=== PATIENT | male | born 1955 | race Caucasian/White ===

== ENCOUNTER 2024-05-04 17:38 | Emergency (ER) | payer OTHER, SELFPAY ==
[2024-05-04] VITALS (17 sets, daily range): BP systolic 126–158; BP diastolic 76–95; PULSE 52–67; TEMP 36.6; O2SAT 95–99; BMI 28.7
--- NOTE | 2024-05-04 17:59 | ECG_ITS ---
[facility] Test Date: 2024-05-04 Pat Name: ALCIRA MOYER Department: Room: - Gender: Male Psychiatric Rn: : 1955 Requested By: Order Number: [id number] Reading MD: TUCKER BOLANOS Measurements Intervals [place] Rate: 55 P: 70 SC: 148 QRS: -8 QRSD: 86 T: 59 QT: 388 QTc: 378 Interpretive Statements 1100 Sinus rhythm 9110 normal ECG No previous ECG available for comparison Electronically Signed On 05-05-2024 6:47:23 EST by TUCKER BOLANOS
--- NOTE | 2024-05-04 18:01 | ED.GENADUL1 ---
HPI HPI - General Adult General Chief complaint: Head Injury Stated complaint: BWC, FALL CHEST PAIN Time Seen by Provider: 05/04/24 17:50 Source: patient Mode of arrival: walk-in History of Present Illness HPI narrative: Patient is a 68-year-old male who presents to the emergency department for evaluation of a head injury with pain in the neck and upper chest/collarbones after a fall. 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 This occurred around 3 hours ago. They went to the [facility]'s emergency department but had to wait in the lobby for several hours so they left and came to this hospital. Patient does not believe that he had a loss of consciousness although the states that he is not sure. He reports pain to the sides of the neck radiating into the collarbones. He has no simona chest pain. He was dizzy after falling. He reports nausea. No peripheral paresthesias. He has no low back pain, hip pain or extremity pain. He does not take any medications for anticoagulation. He had no chest pain, dizziness or prodromal symptoms before falling. Related Data Previous Rx's ?Medication ?Instructions ?Recorded methocarbamol 750 mg tablet 750 mg PO TID PRN pain #20 tabs 05/04/24 ondansetron 4 mg disintegrating 4 mg PO Q6H PRN nausea and 05/04/24 tablet vomiting #12 tabs Allergies Allergy/AdvReac Type Severity Reaction Status Date / Time No Known Drug Allergies Allergy Verified 05/04/24 17:52 Opioid HPI Opioid Management Most Recent Opioid Data: No Data to Display Review of Systems ROS Constitutional Denies: fever or chills Ears, nose, mouth, and throat Reports: neck pain; Denies: throat pain Cardiovascular Reports: chest pain Respiratory Denies: shortness of breath Gastrointestinal Reports: nausea; Denies: abdominal pain or vomiting Musculoskeletal Reports: neck pain; Denies: back pain Integumentary/Breast Denies: rash Neurological Reports: headache; Denies: numbness in extremities or weakness in extremities Hematologic/Lymphatic Denies: easy bruising or easy bleeding Exam Narrative Exam Narrative: Gen.: Awake, alert, in no distress Head: Normocephalic, atraumatic ENT: Moist mucous membranes, no evidence of facial or dental injury. Diffuse mild tenderness of the cervical spine with no bony point tenderness of the posterior midline cervical spine. Respiratory: No respiratory distress, lungs clear bilaterally Cardio: Regular rate and rhythm Gastrointestinal: Abdomen is soft, nondistended and nontender to palpation, hips are nontender and pelvis is stable Extremities: Moves extremities equally, no injuries noted Psych: Normal mood and affect Neuro: No focal neuro deficit Skin: Warm, dry, intact Constitutional Vital Signs, click to edit/add: Last Vital Signs Temp 97.8 F 05/04/24 17:47 Pulse 57 L 05/04/24 19:30 Resp 19 05/04/24 19:30 BP 135/91 05/04/24 19:30 Pulse Ox 96 05/04/24 19:30 O2 Del Method Room Air 05/04/24 17:47 Course Vital Signs Vital signs: Vital Signs Temperature 97.8 F 05/04/24 17:47 Pulse Rate 60 05/04/24 17:47 Respiratory Rate 16 05/04/24 17:47 Blood Pressure 158/95 H 05/04/24 17:47 Pulse Oximetry 98 05/04/24 17:47 Oxygen Delivery Method Room Air 05/04/24 17:47 Temperature 97.8 F 05/04/24 17:47 Pulse Rate 57 L 05/04/24 19:30 Respiratory Rate 19 05/04/24 19:30 Blood Pressure 135/91 05/04/24 19:30 Pulse Oximetry 96 05/04/24 19:30 Oxygen Delivery Method Room Air 05/04/24 17:47 Medical Decision Making MDM Narrative Medical decision making narrative: EKG, labs and troponin obtained within normal limits. Patient was sent for CTs of the head, cervical spine and chest with contrast showing no evidence of acute process. Medicated with Norflex and Zofran. Resting comfortably on reevaluation and hemodynamically stable with a benign neuroexam and normal vital signs. Follow-up with occupational health and return to the ER if symptoms change or worsen. Closed head injury instructions given at bedside. SUPERVISED APC VISIT, PHYSICIAN ATTESTATION: Based on the medical record the care appears appropriate. ? Medical Records Medical records reviewed: Yes I reviewed the patient's medical records Lab Data Lab results reviewed: Yes I reviewed the patient's lab results Labs: Lab Results 05/04/24 Range/Units 18:00 WBC 9.6 (4.0-11.0) 10^3/uL RBC 4.80 (4.70-6.10) 10^6/uL Hgb 15.1 (14.0-18.0) g/dL Hct 43.3 (42.0-54.0) % MCV 90.2 (80.0-94.0) fL MCH 31.5 (25.9-34.0) pg MCHC 34.9 (29.9-35.2) g/dL RDW 12.3 (11.0-15.0) % Plt Count 212 (150-450) 10^3/uL MPV 9.3 L (9.5-13.5) fL Neut % (Auto) 69.1 (43.0-75.0) % Lymph % (Auto) 20.2 L (20.5-60.0) % [place] % (Auto) 7.8 (1.7-12.0) % Eos % (Auto) 1.9 (0.9-7.0) % Baso % (Auto) 0.5 (0.2-2.0) % Neut # (Auto) 6.6 H (1.4-6.5) 10^3/uL Lymph # (Auto) 1.9 (1.2-3.8) 10^3/uL [place] # (Auto) 0.8 (0.3-0.8) 10^3/uL Eos # (Auto) 0.2 (0.0-0.7) 10^3/uL Baso # (Auto) 0.1 (0.0-0.1) 10^3/uL Abs Immat Gran (auto) 0.05 H (0.00-0.03) 10^3/uL Imm/Tot Granulo (auto) 0.5 (0.0-0.5) % PT 11.0 (9.0-11.6) sec INR 1.04 Sodium 137 (136-145) mmol/L Potassium 4.1 (3.5-5.1) mmol/L Chloride 104 (98-107) mmol/L Carbon Dioxide 27.0 (21.0-32.0) mmol/L Anion Gap 10.1 BUN 19.0 H (7.0-18.0) mg/dL Creatinine 0.98 (0.70-1.30) mg/dL Est GFR ( Amer) >60 (>=60 mL/min/1.73m^2) Est GFR (Non-Af Amer) >60 (>=60 mL/min/1.73m^2) BUN/Creatinine Ratio 19.4 Glucose 89 (74-106) mg/dL Calcium 9.3 (8.5-10.1) mg/dL Total Bilirubin 0.9 (0.2-1.0) mg/dL AST 21 (15-37) U/L ALT 49 (16-63) U/L Alkaline Phosphatase 66 (46-116) U/L Troponin I High Sens 4.4 (4.0-76.1) pg/mL Total Protein 7.3 (6.4-8.2) g/dL Albumin 4.3 (3.4-5.0) g/dL Globulin 3.0 g/dL Albumin/Globulin Ratio 1.[address] scan - head: Radiologist's impression: CT of the brain, CT of the cervical spine, CT of the chest with contrast ECG Data Attestation: I personally reviewed and interpreted this ECG as follows: (Normal sinus rhythm at a rate of [address] elevation or ectopy. EKG reviewed by attending physician) Discharge Plan Discharge Chief Complaint: Head Injury Clinical Impression: Closed head injury, Cervical sprain Patient Disposition: Home, Self-Care Time of Disposition Decision: 20:06 Condition: Good Prescriptions / Home Meds: New methocarbamol 750 mg tablet 750 mg PO TID PRN (Reason: pain) Qty: 20 0RF ondansetron 4 mg tablet,disintegrating 4 mg PO Q6H PRN (Reason: nausea and vomiting) Qty: 12 0RF Print Language: Italian Instructions: Head Injury (ED) Referrals: [facility]Outside[facility] - 1 week Physician,Non-Staff, [Physician] - 1 week
[2024-05-04] MEDS: ONDANSETRON PF 4 MG/2 ML VIAL IV (18:26)
[2024-05-04] MEDS: ORPHENADRINE 60 MG/ 2 ML VIAL IV (18:26)
[2024-05-04 19:04] LABS: Basophils Absolute Auto 0.1 10^3/uL (0.0-0.1); Basophils Percent Auto 0.5 % (0.2-2.0); Eosinophils Absolute Auto 0.2 10^3/uL (0.0-0.7); Eosinophils Percent Auto 1.9 % (0.9-7.0); Hematocrit 43.3 % (42.0-54.0); Hemoglobin 15.1 g/dL (14.0-18.0); Immature Granulocytes Abs Auto 0.05 10^3/uL (0.00-0.03); Immature Granulocytes Pct Auto 0.5 % (0.0-0.5); Lymphocytes Absolute Auto 1.9 10^3/uL (1.2-3.8); Lymphocytes Percent Auto 20.2 % (20.5-60.0); Mean Corpuscular HGB Conc 34.9 g/dL (29.9-35.2); Mean Corpuscular Hemoglobin 31.5 pg (25.9-34.0); Mean Corpuscular Volume 90.2 fL (80.0-94.0); Mean Platelet Volume 9.3 fL (9.5-13.5); Monocytes Absolute Auto 0.8 10^3/uL (0.3-0.8); Monocytes Percent Auto 7.8 % (1.7-12.0); Neutrophils Absolute Auto 6.6 10^3/uL (1.4-6.5); Neutrophils Percent Auto 69.1 % (43.0-75.0); Platelet Count 212 10^3/uL (150-450); Red Cell Distribution Width 12.3 % (11.0-15.0); White Blood Count 9.6 10^3/uL (4.0-11.0)
[2024-05-04 19:31] LABS: INR 1.04
[2024-05-04 19:33] LABS: Troponin I High Sensitivity 4.4 pg/mL (4.0-76.1)
[2024-05-04 19:36] LABS: Alanine Aminotransferase 49 U/L (16-63); Albumin Globulin Ratio 1.4; Albumin Level 4.3 g/dL (3.4-5.0); Alkaline Phosphatase 66 U/L (46-116); Anion Gap 10.1; Aspartate Amino Transferase 21 U/L (15-37); BUN Creatinine Ratio 19.4; Bilirubin Total 0.9 mg/dL (0.2-1.0); Calcium 9.3 mg/dL (8.5-10.1); Chloride 104 mmol/L (98-107); Estimated GFR (African America >60 (>=60 mL/min/1.73m^2); Estimated GFR (Non-African Ame >60 (>=60 mL/min/1.73m^2); Glucose 89 mg/dL (74-106); Potassium 4.1 mmol/L (3.5-5.1); Sodium 137 mmol/L (136-145); Total Protein 7.3 g/dL (6.4-8.2)
== END 2024-05-04 20:34 | disposition home or self-care (01) ==
PROVIDERS: Physician Assistant; Emergency Provider Emergency Medicine; PCP Family Medicine
DX: S09.8XXA Other specified injuries of head, initial encounter (principal); S13.4XXA Sprain of ligaments of cervical spine, initial encounter; W01.0XXA Fall on same level from slipping, tripping and stumbling without subsequent striking against object, initial encounter
CPT/HCPCS: 36415; 70450; 71260; 72125; 80053; 84484; 85025; 85610; 93005; 96374; 96375; 99285; J2360; J2405